=== PATIENT | female | born 1950 | race Caucasian/White ===

== ENCOUNTER 2025-03-02 09:29 | Outpatient (REF) | payer MEDICARE, SELFPAY ==
--- OUTSIDE RECORDS SUMMARY | 2025-03-02 10:42 | XMS_ITS | Patient Health Record ---
[facility] [place] Address [address] [facility] [place] [address] Care Team Providers Care Rheostat Assembler Name Role Phone Nils MARTINEZ, Eliane Primary Care Provider Unavail able Osmany Lloyd Unavailable [phone] Allergies Allergen (clinical drug ingredient) Drug/Non Drug Allergy documented on EMR Reaction Allergy Type Onset Date Status Contrast Dye (uncoded) Unknown Allergy Active Shrimp Flavor Unknown Drug Allergy Act owen peanut allergenic extract Peanut (Diagnostic) Unknown Drug Allergy Active Results Component Value Reference Range Notes HEMOGLOBIN A1C (GLYCOHEMOGLO BIN) Reviewed date:10/12/2024 09:28:01 AM Interpretation: Performing Lab: Notes/Report: HEMOGLOBIN A1C % (HH) 5.8 Reason For Referral No Information Medications Medication SIG (Take, Route, Frequency, Duration) Notes Start Date End Date Status Chlorthalidone 25 MG TAKE 1 TABLET BY MO UTH EVERY DAY Oral; Duration: 30 Days Active Ammonium Lactate 12 % 1 application Externally to affected areas of dry skin to feet except for between the toes Twice a day; Duration: 30 days Active Januvia 50 MG TAKE 1 TABLET BY MARCIA TH EVERY DAY Oral; Duration: 30 Days Not-Taking Extra Depth Orthopedic Shoes, (1) Pair With (3) Pair Custom Heat Molded Multidensity Innersoles Dx: NIDDM/PVD(E11.51), Hammertoe Foot Deformity(M20.41,M20.42 ), Preulcerative Skin Lesion(s)(L85.1) Wear Daily; Duration: 365 days Active Atorvastatin Calcium 20 MG 1 tablet Orally Once a day; Duration: 30 days Active Carvedilol 12.5 MG TAKE 1 TABLET BY MARCIA TH TWICE A DAY Oral; Duration: 30 Days Active Olmesartan Medoxomil 40 MG Oral; Duration: 30 Days Acti ve Immunizations Vaccine Route Administration Date Status Comme nts Influenza Unknown 10/12/2024 Refused Social History Tobacco Use: Social History Observation Description Date Details (start date - stop date) Never Smoker NA - NA Tobacco use other than smoking: Question Answer Notes Are you an other tobacco user? No Tobacco Control (Standard) Question Answer Notes Tobacco use: Nonsmoker Additional Findings: Tobacco non-user Current no nsmoker AUDIT-C (Standard) Question Answer Notes Did you have a drink containing alcohol in the p ast year? No Points 0 Interpretation Negative Problems Problem Type SNOMED Code ICD Code Onset Dates Problem Status W/U Status Risk Notes Problem Acquired hammer toe of right foot (4387889330493 105) Other hammer toe(s) (acquired), right foot (M20.41) Active confirmed Problem Type 2 diabetes mellitus with peripheral angiopathy (316648758) Type 2 diabetes mellitus with diabetic peripheral angiopathy without gangrene (E11.51) Active confirmed Q7(A), Q8(2B), Q9(1B,2C) Problem Acquired hammer toe of left foot (2302421469651 103) Other hammer toe(s) (acquired), left foot (M20.42) Active confirmed Vital Signs Blood pressure diastolic 65 mm Hg 01/18/2025 Height 5 ft 2 in in 01/18/2025 Blood pressure systolic 128 mm Hg 01/18/2025 Weight 165 lbs 01/18/2025 BMI 30.18 kg/m2 01/18/2025 Procedures Procedure Date Ordered Date Performed Result Body Sit e 69569-PVERUDF NAIL, 6 OR MORE 04/06/2024 N/A 68748-UZBY SKIN LESIONS, 2 TO 4 04/06/2024 N/A 95790-FBUYORO NAIL, 6 OR MORE 07/13/2024 N/A 70228-HKUU SKIN LESIONS, 2 TO 4 07/13/2024 N/A 03223-WGTDTJF NAIL, 6 OR MORE 10/12/2024 N/A 24062-BLVZ SKIN LESIONS, 2 TO 4 10/12/2024 N/A 36310-ZLYFCNA NAIL, 6 OR MORE 01/18/2025 N/A 80526-WWEF SKIN LESIONS, 2 TO 4 01/18/2025 N/A Encounters Encounter Location Date Provider Diagnosis [address] [address] 04/06/2024 Osmanybraxton Lloyd Type 2 diabetes mellitus with diabetic peripheral angiopathy without gangrene E11.51 ; Tinea unguium B35.1 ; Pain in right toe(s) M79.674 and Pain in left toe(s) M79.[address] [address] 07/13/2024 Osmany Lloyd Type 2 diabetes mellitus with diabetic peripheral angiopathy without gangrene E11.51 ; Tinea unguium B35.1 ; Pain in right toe(s) M79.674 ; Pain in left toe(s) M79.675 and Xerosis of skin L85.[address] [address] 10/12/2024 Osmanybraxton Lloyd Type 2 diabetes mellitus with diabetic peripheral angiopathy without gangrene E11.51 ; Tinea unguium B35.1 ; Pain in right toe(s) M79.674 ; Pain in left toe(s) M79.675 and Xerosis of skin L85.[address] [address] 01/18/2025 Osmany Lloyd Type 2 diabetes mellitus with diabetic peripheral angiopathy without gangrene E11.51 ; Tinea unguium B35.1 ; Pain in right toe(s) M79.674 ; Pain in left toe(s) M79.675 ; Other hammer toe(s) (acquired), left foot M20.42 and Other hammer toe(s) (acquired), right foot M20.41 Assessments Encounter Date Diagnosis (ICD Code) Assessment Notes Treatment Notes Treatment Clinical Notes Section Notes 04/06/2024 Type 2 diabetes mellitus with diabetic peripheral angiopathy without gangrene (ICD-10 - E11.51) 04/06/2024 Tinea unguium (ICD-10 - B35.1) 07/13/2024 Type 2 diabetes mellitus with diabetic peripheral angiopathy without gangrene (ICD-10 - E11.51) Q7(A), Q8(2B), Q9(1B,2C) 07/13/2024 Tinea unguium (ICD-10 - B35.1) 10/12/2024 Type 2 diabetes mellitus with diabetic peripheral angiopathy without gangrene (ICD-10 - E11.51) Q7(A), Q8(2B), Q9(1B,2C) 10/12/2024 Tinea unguium (ICD-10 - B35.1) 01/18/2025 Type 2 diabetes mellitus with diabetic peripheral angiopathy without gangrene (ICD-10 - E11.51) Q7(A), Q8(2B), Q9(1B,2C) 01/18/2025 Tinea unguium (ICD-10 - B35.1) 04/06/2024 Pain in right toe(s) (ICD-10 - M79.674) 01/18/2025 Pain in right toe(s) (ICD-10 - M79.674) 10/12/2024 Pain in right toe(s) (ICD-10 - M79.674) 07/13/2024 Pain in right toe(s) (ICD-10 - M79.674) 04/06/2024 Pain in left toe(s) (ICD-10 - M79.675) 07/13/2024 Pain in left toe(s) (ICD-10 - M79.675) 10/12/2024 Pain in left toe(s) (ICD-10 - M79.675) 01/18/2025 Pain in left toe(s) (ICD-10 - M79.675) 10/12/2024 Xerosis of skin (ICD-10 - L85.3) 07/13/2024 Xerosis of skin (ICD-10 - L85.3) 01/18/2025 Other hammer toe(s) (acquired), left foot (ICD-10 - M20.42) 01/18/2025 Other hammer toe(s) (acquired), right foot (ICD-10 - M20.41) Patient Educated with: DIABETIC FOOT CARE INSTRUCTIONS.p df (DIABETIC FOOT CARE INSTRUCTIONS.p df) 04/06/2024 Other Plan Of Treatment Pending Test Test Name Order Date X ray : Foot, right 3V 10/07/2023 33089-VJJRTRW NAIL, 6 OR MORE 10/07/2023 98628-TITHPIE NAIL, 6 OR MORE 01/06/2024 04681-INROOEG NAIL, 6 OR MORE 04/06/2024 21710-RENSDJJ NAIL, 6 OR MORE 07/13/2024 61168-KDITQMN NAIL, 6 OR MORE 10/12/2024 64904-WRRCZGM NAIL, 6 OR MORE 01/18/2025 96684-Vyapjjxq Plate 10/07/2023 98433-INKC SKIN LESIONS, 2 TO 4 10/07/19 24 24022-BJGH SKIN LESIONS, 2 TO 4 04/06/20 24 68953-SPID SKIN LESIONS, 2 TO 4 01/06/20 24 86713-WRRQ SKIN LESIONS, 2 TO 4 01/19/20 25 80387-FTRO SKIN LESIONS, 2 TO 4 10/13/19 25 67014-TDKO SKIN LESIONS, 2 TO 4 07/14/19 25 Next Appt Details Provider Name:Osmany Lloyd , 05/13/2025 12:00:00 PM, [address] [facility], [place], [address], Insurance Providers Payer Name Payer Address Payer Phone Subscriber Number Group Number Insured Name Patient Relationship to Insured Coverage Start Date Coverage End Date Medicare National [employer] [address] [place] [address] [id number] Liliya Jauregui Self - patient is the insured [employer] [address] [place] [address] [id number] Liliya Jauregui Self - patient is the insured Medical (General) History Medical History History ICD Code Arthritis Broken bones CAD (Cholesterol) Cataracts Diabetic Diverticulosis Gall bladder problems High blood pressure Osteoporosis Chicken pox Surgical History Surgery Date(Month/Year)
--- OUTSIDE RECORDS SUMMARY | 2025-03-02 10:42 | XMS_ITS | Encounter Summary ---
Author Organization [facility] Address [address] [place] [address] Care Team Providers Care Kersey Department Supervisor Name Role Phone Eliane Wray Mynor MANAGER STONE Primary Care Provider + [phone] Encounter Details Date Type Department Care Team (Late st Contact Info) Description 08/30/2024 Lab Requisition [facility] - Main Lab [address] [facility] [place] [address] Keyana Shannon PA [address] [place], [place] [phone] Calculus of kidney Social History Tobacco Use Types Packs/Day Years Used Date Smoking Tobacco: Never Assessed Comments Unknown Sex and Gender Information Value Date Recorded Sex Assigned at Not on file Legal Sex Female 12:00 PM EDT Gender Identity Not on file Sexual Orientation Not on file documented as of this encounter Plan of Treatment Not on file documented as of this encounter Procedures Procedure Name Priority Date/Time Associated Diagnosis Comments PARATHYROID HORMONE INTACT Routine 08/30/2024 9:07 AM EDT Calculus of kidney documented in this encounter Results * Parathyroid hormone intact (08/30/2024 9:07 AM EDT) PTH 19.3 18.5 - 88.0 pcg/mL LAB CHEMISTRY METHOD 08/30/2024 2:01 PM EDT [facility] ([facility]) [facility] Blood Venous blood specimen / Unknown 08/30/2024 9:07 AM EDT 08/30/2024 12:04 PM EDT us [facility] LAB BLOOD ORDERABLES Final Res ult EMELY TSANG [place] ([facility]) HOSPITAL LAB [address] [place] [address], documented in this encounter Visit Diagnoses Diagnosis Calculus of kidney documented in this encounter Care Teams Kersey Department Supervisor Relationship Specialty Start Date End Date Eliane Wray NP [address] [facility] [place] [address] PCP - General Nurse Practitioner 08/30/24 documented as of this encounter
--- OUTSIDE RECORDS SUMMARY | 2025-03-02 10:42 | XMS_ITS | Clinical Summary ---
Author Organization [address] Address [address] [place] [address] Phone Care Team Providers Care Principal Consultant Name Role Phone Eliane Wray CHALKER SOLES Primary Care Provider [phone] Social History Tobacco Use Types Packs/Day Years Used Date Smoking Tobacco: Never Assessed Comments Unknown Sex and Gender Information Value Date Recorded Sex Assigned at Not on file Legal Sex Female 12:00 PM EDT Gender Identity Not on file Sexual Orientation Not on file Plan of Treatment Health Maintenance Due Date Last Done Comments Breast Cancer Screening 1950 Colorectal Cancer Screening: Colonoscopy 1950 DTaP,Tdap,and Td Vaccines (1 - Tdap) 02/19/1971 Pneumococcal Vaccine: 50+ Ye ars (1 of 1 - PCV) 02/19/2002 Zoster Vaccines (1 of 2) 02/19/2002 Depression Screening 04/28/2024 Falls Risk Assessment 08/30/2024 Hepatitis C Screening 08/30/2024 Medicare Annual Wellness Visit 08/30/2024 Osteoporosis Screening (Bone Density Screening) 08/30/2024 Social Influencers of Health Screening 08/30/2024 COVID-19 Vaccine (1 - 2023-2 5 season) 2024 Influenza Vaccine (#1) 2024 RSV Immunization Adult Patie nts (1 - 1-dose 75+ series) 02/19/2027 HIB Vaccines Aged Out No longer eligi ble based on patient's age to complete this topic HPV Vaccines Aged Out No longer eligi ble based on patient's age to complete this topic Hepatitis A Vaccines Aged Out No long er eligible based on patient's age to complete this topic Hepatitis B Vaccines Aged Out No long er eligible based on patient's age to complete this topic IPV Vaccines Aged Out No longer eligi ble based on patient's age to complete this topic MMR Vaccines Aged Out No longer eligi ble based on patient's age to complete this topic Meningococcal ACWY Vaccine Aged Out N o longer eligible based on patient's age to complete this topic Meningococcal B Vaccine Aged Out No l onger eligible based on patient's age to complete this topic RSV Immunization Patients Un yaneth 20 months Aged Out No longer eligible b ased on patient's age to complete this topic Varicella Vaccines Aged Out No longer eligible based on patient's age to complete this topic Insurance MEDICARE [facility] Care Teams Principal Consultant Relationship Specialty Start Date End Date Eliane Wray NP [address] [facility] [place] [address] PCP - General Nurse Practitioner 08/30/24
== END 2025-03-02 09:30 | disposition home or self-care (01) ==
LOC: HO.LAB 09:29
PROVIDERS: PCP Nurse Practitioner Family; Visit Provider Nurse Practitioner Family
DX: E11.9 Type 2 diabetes mellitus without complications (principal)
CPT/HCPCS: 36415; 83036